=== PATIENT | female | born 1945 | race Caucasian/White ===

== ENCOUNTER 2018-05-27 08:12 | Inpatient (IN) | payer OTHER ==
[2018-05-12 10:33] VITALS: BMI 30.2
--- NOTE | 2018-05-27 07:38 | HP ---
Satellite [facility] - Chief Complaint Chief Complaint: right hip pain - Past Medical History Allergies/Adverse Reactions: Allergies Allergy/AdvReac Type Severity Reaction Status Date / Time clams Allergy Verified 01/20/15 13:33 Penicillins Allergy Verified 02/01/14 15:05 seasonal Allergy Uncoded 05/12/18 10:16 Cardiovascular: Yes: CAD (s/p CABG in 1999), HTN, Hyperlipdemia Pulmonary: Yes: Bronchitis Rheumatology: Yes: Rheumatoid Arthritis Endocrine: Yes: Diabetes Mellitus - Current Medications Current Medications: Home Medications Medication Instructions Recorded Metoprolol Succinate [Toprol XL -] 25 mg PO DAILY 02/01/14 Amlodipine Besylate [Norvasc -] 5 mg PO DAILY 05/12/18 Biotin 10,000 mcg PO DAILY 05/12/18 Flaxseed Oil [Flaxseed] 1,000 mg PO DAILY 05/12/18 Latanoprost/Pf [Latanoprost 0.005% 7.5 ml OP HS 05/12/18 Eye Drop] Multivitamin [One-Daily 1 each PO DAILY 05/12/18 Multi-Vitamin] Naproxen Sodium [Naproxen Sodium 500 mg PO BID 05/12/18 ER] Red Yeast Rice 1,200 mg PO DAILY 05/12/18 Vitamin E 400 unit PO DAILY 05/12/18 metFORMIN HCL [Glucophage -] 250 mg PO BID 05/12/18 Satellite Physical Exam - Physical Examination General Appearance: Well Nourished, Well Developed, Alert & Oriented x3 ENT: Clear Lung: Normal air movement Heart: Regular rate & rhythm Extremities: Other (right hip- + ttp, decr rom, nvi xrays show grade 4 hip djd) Neurological: Intact, Alert, Oriented Satellite Impression/Plan - Impression/Plan Impression: right hip djd Operative Procedure: right williams thr Date to be Performed: 05/27/18
[2018-05-27] MEDS ORDERED: CELECOXIB 200 MG CAPSULE PO ONE (08:31)
[2018-05-27] MEDS ORDERED: oxyCODONE HCL 10 MG SUSTAINED ACTING TABLET PO ONE (08:31)
[2018-05-27] MEDS ORDERED: GABAPENTIN 300 MG CAPSULE (FP) PO ONE (08:31)
[2018-05-27] MEDS ORDERED: CEFAZOLIN 1 GM/D5W 1 GRAM/50 ML BAG IVPB ONE (08:31)
[2018-05-27] MEDS ORDERED: TRANEXAMIC ACID 1000 MG/10 ML VIAL IVPUSH ONE (08:31)
[2018-05-27] MEDS ORDERED: DEXAMETHASONE SOD PHOSPHATE/PF 10 MG/ML SDV ONE (09:48)
[2018-05-27] MEDS ORDERED: MIDAZOLAM HCL 2 MG/2 ML SINGLE DOSE VIAL ONE (09:49)
[2018-05-27] MEDS ORDERED: BUPIVACAINE HCL/PF (5 MG/ML) 30 ML VIAL IJ ONE (09:49)
[2018-05-27] MEDS ORDERED: DEXMEDETOMIDINE HCL 200 MCG/2 ML IVPB ONE (10:11)
[2018-05-27] MEDS ORDERED: VANCOMYCIN 1,000 MG VIAL (RESTRICTED TO ID ONLY) ONE (10:23)
[2018-05-27] MEDS ORDERED: ceFAZolin SODIUM 1 GM VIAL ONE ×2 (10:32→10:33)
[2018-05-27] MEDS ORDERED: ONDANSETRON 4 MG/2 ML VIAL ONE (10:32)
[2018-05-27] MEDS ORDERED: TRANEXAMIC ACID 1000 MG/10 ML VIAL ONE (10:32)
[2018-05-27] MEDS ORDERED: SODIUM CHLORIDE 0.9% P/F 10 ML VIAL IJ ONE (10:32)
[2018-05-27] MEDS ORDERED: LACTATED RINGERS SOLUTION 1,000 ML IV SCH ×2 (10:45→11:00)
[2018-05-27] MEDS ORDERED: ONDANSETRON 4 MG/2 ML VIAL IVPUSH PRN (10:45)
[2018-05-27] MEDS ORDERED: oxyCODONE HCL 5 MG TABLET PO PRN (10:47)
[2018-05-27] MEDS ORDERED: MAGNESIUM HYDROX 2400MG/30ML ORAL SUSPENSION 30 ML CUP PO PRN (10:57)
[2018-05-27] MEDS ORDERED: MAG HYDROX/AL HYDROX/SIMETH 30 ML UNIT-DOSE CUP PO PRN (10:57)
[2018-05-27] MEDS ORDERED: ACETAMINOPHEN 325 MG TABLET (FP) PO SCH (11:00)
[2018-05-27] MEDS ORDERED: LIDOCAINE HCL/PF 2% SDV 5ML VIAL ONE (11:19)
[2018-05-27] MEDS ORDERED: ePHEDrine SULFATE 50 MG/1 ML AMPULE ONE ×2 (11:27→11:30)
[2018-05-27] MEDS ORDERED: VANCOMYCIN 1,000 MG VIAL (RESTRICTED TO ID ONLY) IVPB ONE (12:25)
--- NOTE | 2018-05-27 12:52 | OP ---
Operative Note - Note: Operative Date: 05/27/18 (kelly) Pre-Operative Diagnosis: right hip djd Operation: right williams thr Post-Operative Diagnosis: Same as Pre-op Surgeon: Nehemias Coelho Package Delivery Room Service Runner: Matthew Everett Anesthesiologist/SUPERVISING ARCHITECT: Angelito Foreman Anesthesia: Spinal, Local Specimens Removed: femoral head Estimated Blood Loss (mls): 100 Operative Report Dictated: Yes
[2018-05-27] MEDS: metFORMIN HCL 500 MG TABLET (FP) PO SCH (14:00)
[2018-05-27] MEDS: INSULIN SLIDING SCALE (NOVOLOG) 1 VIAL SQ SCH ×3 (14:59→22:29)
[2018-05-27] MEDS: oxyCODONE HCL 5 MG TABLET PO PRN (17:45)
[2018-05-27] MEDS: CEFAZOLIN 1 GM/D5W 1 GRAM/50 ML BAG IVPB SCH (18:35)
--- NOTE | 2018-05-27 19:21 | SPEC ---
DATE OF OPERATION: 05/27/2018 PREOPERATIVE DIAGNOSIS: Degenerative joint disease right hip. POSTOPERATIVE DIAGNOSIS: Degenerative joint disease right hip. PROCEDURE PERFORMED: Right total hip replacement with robotic-assisted navigation (MAKOplasty). SURGICAL ATTENDING: Nehemias Coelho MD ORTHOPAEDIC NURSE: HALEIGH Barrios ANESTHESIA: Regional and spinal. CLOSURE: A number 3 Accolade II press-fit stem, a 48 Trident II press-fit acetabulum, and a +3 MDM femoral head. Number 1 Vicryl for fascia, 0 and 2-0 subcutaneous, 3-0 V-Loc for skin, 4-0 undyed Vicryl for pin sites. ESTIMATED BLOOD LOSS: Less than 100 mL. COMPLICATIONS: None. CONDITION: To the recovery room in stable condition. DESCRIPTION OF PROCEDURE: The patient was taken to the operating room on May 27, 2018. General and regional anesthesia was administered by the anesthesiologist. IV Kefzol and TXA were administered prophylactically prior to the case. The patient was placed in the lateral decubitus position will all prominences well-padded. The right hip area was prepped and draped in the usual sterile fashion. Using 3 small stab incisions over the iliac crest, 3 threaded pins were drilled in power fashion through the 2 tables of the crest. These pins were fastened and the navigation array for the Buck navigation system. Next, a 12 to 15-cm curved longitudinal incision over the posterolateral aspect of the greater trochanter was incised. Hemostasis was achieved with Bovie cautery. Sharp dissection was carried down to level of the fascia. The fascia was opened the entire length of the incision, spreading the fibers of the gluteus nikki in the direction of origin. A Charnley retractor was placed in this layer. Care was taken not to impale the sciatic nerve. The short external rotators were detached off the insertion of the greater trochanter and peeled off the capsule. A posterior capsulotomy was then performed. A check point was malleted into the greater trochanter and a point on the inferior pole of the patella was obtained as well. These 2 points were used to assess the preoperative offset and limb lengths of the hip. The hip was then dislocated. The femoral neck was then osteotomized down to the appropriate level as directed by the navigation device. Anterior and posterior retractors were placed, exposing the acetabulum. A circumferential labral excision was performed. A check point was malleted into the acetabulum as well. Multiple sites inside the acetabulum and around the rim were utilized to register the acetabulum with the navigation device. An excellent registration of less than 0.5 mm was obtained. The hip was then reamed with the appropriate reamer down to the appropriate depth, with the appropriate orientation and version as assessed on our preoperative plan for this patient. The reamer was removed and the acetabulum was inspected to have good bleeding surfaces throughout. The real acetabular cup was then malleted down into place, with the holes in the appropriate position, until an excellent fixation was obtained. No screws were necessary. The navigation device ensured appropriate orientation and version, with the depth as predetermined. The appropriate liner was then clipped into place. Attention was directed to the femur. The proximal femur was prepared by use a box chisel, a canal finder and serial broaches until the broach achieved excellent rigidity in the proximal femur with the appropriate version being applied. A calcar planer was used to smooth off the calcar flush with the trial components. A trial reduction with the appropriate head was done, and the hip was reduced. The hip was taken through a range of motion from full extension with external rotation to marked flexion, and was stable at 90 degrees of flexion. It was stable to marked abduction and internal rotation, with a positive hang test and negative telescoping. Limb lengths were ascertained visually as well as with the navigation device to be within the targeted range for this patient. The trial component was removed. The real component was then malleted into place. The head was cold welded to the trunnion, and the hip was reduced. Range of motion, stability and limb lengths were as described in the trial component. Then the hip was pulse antibiotic irrigated. Vancomycin powder was placed in the hip joint. The capsule was closed. The fascia was then closed as well using number 1 Vicryl interrupted suture, 0 and 2-0 subcutaneous, and 3-0 V-Loc for the skin. 4-0 undyed Vicryl was used to close the pin sites after the pins were removed. All check points were also removed. Sterile Aquacel dressing was applied. The patient was awakened from anesthesia and transferred into the supine position. Bilateral SCDs and an abduction pillow were placed. X-rays revealed excellent position of the components. The patient was transferred to the recovery room in stable condition, with no complications. Estimated blood loss was less than 100 mL. Helen BORJAS/[id number]
[2018-05-27] MEDS: ACETAMINOPHEN 325 MG TABLET (FP) PO SCH (21:32)
[2018-05-27] MEDS: oxyCODONE HCL 10 MG SUSTAINED ACTING TABLET PO SCH (21:33)
[2018-05-27] MEDS: SENNOSIDES/DOCUSATE COMBO (SENNA PLUS) TABLET (UD) PO SCH (21:35)
[2018-05-27] MEDS: LATANOPROST 0.005% OPHTH SOLN 2.5ML BOTTLE OU SCH (21:35)
[2018-05-27] MEDS ORDERED: INSULIN (NOVOLOG) ASPART 100 UNITS/ML 10ML VIAL ONE (22:25)
[2018-05-28] MEDS: CEFAZOLIN 1 GM/D5W 1 GRAM/50 ML BAG IVPB SCH (03:15)
[2018-05-28] MEDS: ACETAMINOPHEN 325 MG TABLET (FP) PO SCH ×4 (03:15→21:55)
[2018-05-28] MEDS: metFORMIN HCL 500 MG TABLET (FP) PO SCH ×2 (06:45→17:36)
[2018-05-28] MEDS: INSULIN SLIDING SCALE (NOVOLOG) 1 VIAL SQ SCH ×4 (06:45→22:51)
[2018-05-28] MEDS: oxyCODONE HCL 5 MG TABLET PO PRN ×2 (06:46→21:56)
--- NOTE | 2018-05-28 08:57 | PN ---
Progress Note (short form) - Note Progress Note: Ortho Pt seen and examined s/p right williams thr pod #1 Selected Entries 05/28/18 06:00 Temperature 98.6 F Pulse Rate 75 Respiratory 18 Rate Blood Pressure 122/62 Laboratory Tests 05/28/18 07:01 WBC Pending Hgb Pending Hct Pending Plt Count Pending dressing c/d/i, calf soft, nt nvi a/p PT hip precautions dvt ppx pain control d/c home tomorrow if stable
[2018-05-28] MEDS: metoPROLOL SUCCINATE 25 MG TAB.SR.24H (FP) PO SCH (09:49)
[2018-05-28] MEDS: ASPIRIN 325 MG TABLET PO SCH (09:49)
[2018-05-28] MEDS: oxyCODONE HCL 10 MG SUSTAINED ACTING TABLET PO SCH ×2 (09:49→21:55)
[2018-05-28] MEDS: MULTIVITAMINS (DAILY MVI) TABLET (FP) PO SCH (09:49)
[2018-05-28] MEDS: PANTOPRAZOLE 40 MG TABLET (FP) PO SCH (09:50)
[2018-05-28] MEDS: amLODIPine BESYLATE 5 MG TABLET (FP) PO SCH (09:54)
[2018-05-28] MEDS: SENNOSIDES/DOCUSATE COMBO (SENNA PLUS) TABLET (UD) PO SCH ×2 (10:00→21:56)
[2018-05-28] MEDS ORDERED: INSULIN (NOVOLOG) ASPART 100 UNITS/ML 10ML VIAL ONE (11:42)
--- NOTE | 2018-05-28 12:13 | PN ---
Progress Note, Physician Chief Complaint: s/p right total hip replacement under spinal anesthesia History of Present Illness: paravertebral block for post op pain control - Current Medication List Current Medications: Active Medications Acetaminophen (Tylenol -) 650 mg PO Q6H [facility] Stop: 05/30/18 20:59 Last Admin: 05/28/18 09:53 Dose: 650 mg Al Hydroxide/Mg Hydroxide (Mylanta Oral Suspension -) 30 ml PO Q4H PRN PRN Reason: DYSPEPSIA Amlodipine Besylate (Norvasc -) 5 mg PO DAILY [facility] Last Admin: 05/28/18 09:54 Dose: 5 mg Aspirin (Asa -) 325 mg PO DAILY@0800 [facility] Last Admin: 05/28/18 09:49 Dose: 325 mg Insulin Aspart (Novolog Vial Sliding Scale -) 1 vial SQ [facility]; Protocol Last Admin: 05/28/18 11:44 Dose: 2 units Latanoprost (Xalatan 0.005% Eye Drops -) 1 drop OU HS [facility] Last Admin: 05/27/18 21:35 Dose: 1 drop Magnesium Hydroxide (Milk Of Magnesia -) 30 ml PO PRN PRN PRN Reason: CONSTIPATION Metformin HCl (Glucophage -) 250 mg PO BIDI [facility] Last Admin: 05/28/18 06:45 Dose: 250 mg Metoprolol Succinate (Toprol Xl -) 25 mg PO DAILY [facility] Last Admin: 05/28/18 09:49 Dose: 25 mg Multivitamins/Minerals/Vitamin C (Tab-A-Vit -) 1 tab PO DAILY [facility] Last Admin: 05/28/18 09:49 Dose: 1 tab Ondansetron HCl (Zofran Injection) 4 mg IVPUSH Q6H PRN PRN Reason: NAUSEA AND/OR VOMITING Oxycodone HCl (Roxicodone -) 5 mg PO Q3H PRN PRN Reason: PAIN LEVEL 1-5 Last Admin: 05/28/18 06:46 Dose: 5 mg Oxycodone HCl (Roxicodone -) 10 mg PO Q3H PRN PRN Reason: PAIN LEVEL 6-10 Last Admin: 05/27/18 21:34 Dose: 10 mg Oxycodone HCl (Oxycontin -) 10 mg PO BID [facility] Stop: 05/30/18 10:48 Last Admin: 05/28/18 09:49 Dose: 10 mg Pantoprazole Sodium (Protonix -) 40 mg PO DAILY [facility] Last Admin: 05/28/18 09:50 Dose: 40 mg Senna/Docusate Sodium (Pericolace -) 2 tablet PO BID [facility] Last Admin: 05/27/18 21:35 Dose: 2 tablet - Objective Vital Signs: Vital Signs Temperature 98.6 F 05/28/18 06:00 Pulse Rate 75 05/28/18 06:00 Respiratory Rate 18 05/28/18 06:00 Blood Pressure 122/62 05/28/18 06:00 O2 Sat by Pulse Oximetry (%) 100 05/28/18 06:33 Constitutional: Yes: Well Nourished Cardiovascular: Yes: WNL Respiratory: Yes: WNL Gastrointestinal: Yes: WNL Assessment/Plan No anesthetic complications, pain controlled, dept of anesthesia will sign off care.
[2018-05-28 13:42] LABS: HEMOGLOBIN 9.2 GM/dl (10.7-15.3); WHITE BLOOD COUNT 12.9 K/mm3 (4.0-10.8)
[2018-05-28 13:43] LABS: MEAN PLT VOLUME 9.1 fl (7.5-11.1); PLATELET COUNT 321 K/MM3 (134-434)
[2018-05-28] MEDS: LATANOPROST 0.005% OPHTH SOLN 2.5ML BOTTLE OU SCH (21:57)
[2018-05-29] MEDS: ACETAMINOPHEN 325 MG TABLET (FP) PO SCH (03:37)
[2018-05-29] MEDS: metFORMIN HCL 500 MG TABLET (FP) PO SCH (06:48)
[2018-05-29] MEDS: oxyCODONE HCL 5 MG TABLET PO PRN ×2 (06:49→09:58)
[2018-05-29] MEDS: INSULIN SLIDING SCALE (NOVOLOG) 1 VIAL SQ SCH (06:50)
[2018-05-29] MEDS ORDERED: INSULIN (NOVOLOG) ASPART 100 UNITS/ML 10ML VIAL ONE (06:50)
[2018-05-29 07:00] VITALS: BP 146/54; PULSE 82; TEMP 99
[2018-05-29] MEDS: ASPIRIN 325 MG TABLET PO SCH (08:10)
--- NOTE | 2018-05-29 08:39 | PN ---
Progress Note (short form) - Note Progress Note: Ortho Pt seen and examined s/p right williams thr pod #2 Selected Entries 05/29/18 06:00 Temperature 99.0 F Pulse Rate 82 Respiratory 19 Rate Blood Pressure 146/54 L Laboratory Tests 05/28/18 07:01 WBC 12.9 H Hgb 9.2 L Hct TNP Plt Count 321 dressing c/d/i, calf soft, nt nvi a/p PT hip precautions dvt ppx pain control d/c home today f/u in 1 week
--- NOTE | 2018-05-29 08:40 | DS ---
Physical Examination Vital Signs: Vital Signs Temperature 99.0 F 05/29/18 06:00 Pulse Rate 82 05/29/18 06:00 Respiratory Rate 19 05/29/18 08:14 Blood Pressure 146/54 L 05/29/18 06:00 O2 Sat by Pulse Oximetry (%) 100 05/29/18 08:14 Discharge Summary Reason For Visit: OSTEOARTHRITIS Procedures: Principal: right thr Hospital Course: admitted for elective right williams thr, uneventful post-op, stable for d/c Condition: Good - Instructions Diet, Activity, Other Instructions: Post-op Instructions-Total Hip Replacement Call the office for a follow-up appointment in 1 week - [phone] Aspirin 325mg daily for 6 weeks. Pain medication was sent into your pharmacy. Apply Graduated Compression Stockings (TEDs) to both lower extremities- remove daily for hygiene ONLY Apply Sequential Compression Device (SCDs) to both Lower extremities remove for PT and hygiene ONLY Apply cold packs to affected area for 15 minutes every 2 hours. Physical Therapist will come to your home for the first 5 days. You will be set up with outpatient PT at your first post-operative visit. Patient may ambulate as tolerated-encourage self care (at least every 2-3 hours while awake) with walker or cane Maintain Aquacel (waterproof) dressing to operative wound (will be removed by surgeon at first office visit) Shower with Aquacel dressing in place-if Aquacel integrity compromised, remove and apply dry sterile dressing and notify Orthopedist. DO NOT SHOWER unless Orthopedists approves without Aquacel dressing CONTACT THE OFFICE FOR ANY CHANGE IN YOUR CONDITION (for example-fever greater than 102 degrees, excessive bleeding from operative site, purulent drainage, severe swelling or pain) GO TO THE EMERGENCY ROOM IF THERE IS A MEDICAL EMERGENCY Hip Precautions: * Keep a rolled towel under affected heel while in bed or chair (to keep knee in extension) * Dependent upon approach: * Posterior - do not cross legs; do not sit on low chairs or toilets. * If you have any questions, please do not hesitate to call the office - . Referrals: Nehemias Coelho MD [Staff Physician] - Disposition: VNS/HOME HEALTH CARE - Home Medications Comprehensive Discharge Medication List: Ambulatory Orders Metoprolol Succinate [Toprol XL -] 25 mg PO DAILY 02/01/14 Amlodipine Besylate [Norvasc -] 5 mg PO DAILY 05/12/18 Biotin 10,000 mcg PO DAILY 05/12/18 Flaxseed Oil [Flaxseed] 1,000 mg PO DAILY 05/12/18 Latanoprost/Pf [Latanoprost 0.005% Eye Drop] 7.5 ml OP HS 05/12/18 Multivitamin [One-Daily Multi-Vitamin] 1 each PO DAILY 05/12/18 Naproxen Sodium [Naproxen Sodium ER] 500 mg PO BID 05/12/18 Red Yeast Rice 1,200 mg PO DAILY 05/12/18 Vitamin E 400 unit PO DAILY 05/12/18 metFORMIN HCL [Glucophage -] 250 mg PO BID 05/12/18 Aspirin [ASA -] 325 mg PO DAILY@0800 tablet 05/28/18 Oxycodone HCl/Acetaminophen [Percocet 5-325 mg Tablet -] 1 - 2 tab PO Q6H #50 tab MDD 8 05/28/18
[2018-05-29 09:42] LABS: HEMOGLOBIN 9.3 GM/dl (10.7-15.3); MEAN PLT VOLUME 8.7 fl (7.5-11.1); PLATELET COUNT 232 K/MM3 (134-434)
[2018-05-29 09:54] LABS: WHITE BLOOD COUNT 13.9 K/mm3 (4.0-10.8)
[2018-05-29] MEDS: MULTIVITAMINS (DAILY MVI) TABLET (FP) PO SCH (09:58)
[2018-05-29] MEDS: metoPROLOL SUCCINATE 25 MG TAB.SR.24H (FP) PO SCH (09:58)
[2018-05-29] MEDS: PANTOPRAZOLE 40 MG TABLET (FP) PO SCH (09:58)
[2018-05-29] MEDS: amLODIPine BESYLATE 5 MG TABLET (FP) PO SCH (09:58)
[2018-05-29] MEDS: SENNOSIDES/DOCUSATE COMBO (SENNA PLUS) TABLET (UD) PO SCH (09:58)
[2018-05-29] MEDS: oxyCODONE HCL 10 MG SUSTAINED ACTING TABLET PO SCH (09:59)
--- NOTE | 2018-05-29 14:05 | PATH ---
Surgical Pathology Report Patient Name: GINNA NATHAN Med. Rec. #: [id number] /Age/Gender: 1945 (Age: 72) / F Account: [id number] Location: [facility] Taken: 05/27/2018 Received: 05/27/2018 Reported: 05/29/2018 Physicians: Nehemias Coelho M.D. Specimen(s) Received RIGHT FEMORAL HEAD Clinical History Osteoarthritis right hip Final Diagnosis BONE, FEMORAL HEAD, RIGHT, TOTAL HIP REPLACEMENT MAKOPASTY: BONE WITH DEGENERATIVE JOINT DISEASE. Electronically Signed Lulu Peña M.D. Gross Description Received in formalin, labeled "right femoral head," is a 4.4 x 4.4 x 3.6 cm. femoral head with a 0.6 cm in length portion of femoral neck attached. The margin of resection is smooth. There is a 2.4 cm in greatest dimension area of eburnation present. The remaining articular surface is hardy-yellow and diffusely granular and nodular. The underlying trabecular bone is yellow and hard. A insurance verification representative section is submitted in one cassette, following decalcification. /05/28/201805/28/2018
== END 2018-05-29 11:25 | disposition home health service (06) | DRG 470 ==
LOC: FM/S 08:12
PROVIDERS: ADMIT Orthopaedic Surgery; ATTEND Orthopaedic Surgery
PROC: 0SR90JA Replacement of Right Hip Joint with Synthetic Substitute, Uncemented, Open Approach (ICD-10-PCS; principal; 2018-05-27 11:35)
DX: M16.11 Unilateral primary osteoarthritis, right hip (principal); I10 Essential (primary) hypertension; I25.10 Atherosclerotic heart disease of native coronary artery without angina pectoris; E78.5 Hyperlipidemia, unspecified; M06.9 Rheumatoid arthritis, unspecified; E11.9 Type 2 diabetes mellitus without complications; Z88.0 Allergy status to penicillin
CPT/HCPCS: 36415; 73502-TC-RT-FY; 82962; 85027; 88305-TC; 88311-TC; 94660; 94760; 97116-GP

== ENCOUNTER 2020-01-25 21:48 | Inpatient (IN) | payer OTHER ==
[2020-01-25] MEDS ORDERED: ASPIRIN 81 MG CHEWABLE TABLETS PO ONE (22:21)
[2020-01-25] MEDS ORDERED: ASPIRIN 81 MG CHEWABLE TABLETS ONE (22:25)
[2020-01-25 22:54] LABS: HEMATOCRIT 12.6 % (32.4-45.2); HEMOGLOBIN 7.9 GM/dL (10.7-15.3); MEAN CELL VOLUME 131.5 fl (80-96); RBC 0.96 M/mm3 (3.60-5.2); RDW 31.8 % (11.6-15.6)
[2020-01-25 23:00] LABS: INR 1.04 (0.83-1.09); PROTHROMBIN TIME (PATIENT) 12.8 SEC (9.7-13.0)
[2020-01-25 23:03] LABS: ACTIVATED PTT 24.3 SECONDS (25.2-36.5)
[2020-01-25 23:12] LABS: CHLORIDE 100 mmol/L (98-107); POTASSIUM 4.6 mmol/L (3.5-5.1); SODIUM 133 mmol/L (136-145)
[2020-01-25 23:15] LABS: MCH 82.8 pg (25.7-33.7); MCHC 62.9 g/dl (32.0-36.0)
[2020-01-25 23:17] LABS: CALCIUM 8.7 mg/dL (8.5-10.1)
[2020-01-25 23:18] LABS: ALBUMIN 4.2 g/dl (3.4-5.0); ANION GAP 10 MMOL/L (8-16); BLOOD UREA NITROGEN 19.2 mg/dL (7-18); CO2 23 mmol/L (21-32); GLUCOSE,RANDOM 360 mg/dL (74-106)
[2020-01-25 23:21] LABS: CREATININE 1.1 mg/dL (0.55-1.3); SGOT/AST 63 U/L (15-37); SGPT/ALT 40 U/L (13-61)
[2020-01-25 23:23] LABS: BILIRUBIN,TOTAL 5.8 mg/dL (0.2-1); TOT PROT 7.4 g/dl (6.4-8.2)
[2020-01-25 23:24] LABS: ALK PHOS 237 U/L (45-117)
[2020-01-26 02:59] LABS: ANISOCYTOSIS 3+; MACROCYTOSIS 1+; PLATELET ESTIMATE NORMAL
[2020-01-26 03:27] LABS: MEAN PLT VOLUME 9.1 fl (7.5-11.1); PLATELET COUNT 409 K/MM3 (134-434); WHITE BLOOD COUNT 15.8 K/mm3 (4.0-10.0)
[2020-01-26 08:34] LABS: POTASSIUM 5.7 mmol/L (3.5-5.1)
[2020-01-26 08:44] LABS: CALCIUM 8.3 mg/dL (8.5-10.1)
[2020-01-26 08:46] LABS: ALBUMIN 3.6 g/dl (3.4-5.0); BLOOD UREA NITROGEN 14.4 mg/dL (7-18)
[2020-01-26 08:48] LABS: CREATININE 0.8 mg/dL (0.55-1.3)
[2020-01-26 08:49] LABS: MAGNESIUM 2.3 mg/dL (1.8-2.4); PHOSPHOROUS 3.7 mg/dL (2.5-4.9)
[2020-01-26 08:50] LABS: TOT PROT 6.6 g/dl (6.4-8.2)
[2020-01-26 08:57] LABS: BILIRUBIN,TOTAL 3.2 mg/dL (0.2-1)
[2020-01-26 09:04] LABS: BASO % 2.9 % (0-2.0); EOS % 0.7 % (0-4.5); HEMATOCRIT 17.7 % (32.4-45.2); LYMPH % 38.3 % (8-40); MEAN CELL VOLUME 126.2 fl (80-96); MONO % 4.9 % (3.8-10.2); NEUT % 53.2 % (42.8-82.8); RDW 20.4 % (11.6-15.6)
[2020-01-26 09:30] LABS: MCH 71.7 pg (25.7-33.7)
[2020-01-26 09:32] LABS: MCHC 56.8 g/dl (32.0-36.0)
[2020-01-26 11:19] LABS: ANISOCYTOSIS 2+; MACROCYTOSIS 1+; PLATELET ESTIMATE NORMAL
[2020-01-26] MEDS ORDERED: NITROGLYCERIN SUBLINGUAL 1/150 0.4 MG TAB SL PRN (13:53)
[2020-01-26] MEDS: amLODIPine BESYLATE 5 MG TABLET (FP) PO SCH (14:08)
[2020-01-26] MEDS: metoPROLOL SUCCINATE 25 MG TAB.SR.24H (FP) PO SCH (14:08)
[2020-01-26] MEDS: EZETIMIBE 10 MG TABLET (FP) PO SCH (14:10)
[2020-01-26 15:40] VITALS: BMI 29.0
[2020-01-26] MEDS ORDERED: ATORVASTATIN CA 10 MG TABLET (FP) PO SCH (22:00)
[2020-01-26] MEDS ORDERED: LATANOPROST 0.005% OPHTH SOLN 2.5ML BOTTLE OU SCH (22:00)
[2020-01-27 07:41] LABS: POTASSIUM 5.4 mmol/L (3.5-5.1)
[2020-01-27 07:44] LABS: CALCIUM 8.6 mg/dL (8.5-10.1)
[2020-01-27 07:46] LABS: ALBUMIN 3.5 g/dl (3.4-5.0); BLOOD UREA NITROGEN 13.2 mg/dL (7-18)
[2020-01-27 07:49] LABS: BILIRUBIN,TOTAL 2.7 mg/dL (0.2-1); CREATININE 0.8 mg/dL (0.55-1.3)
[2020-01-27 07:50] LABS: TOT PROT 6.2 g/dl (6.4-8.2)
[2020-01-27] MEDS ORDERED: PNEUMOC 13-VAL CONJ-DIP CRM/PF 0.5 ML DISP.SYRIN IM ONE (08:00)
[2020-01-27 09:16] LABS: BASO % 0.5 % (0-2.0); EOS % 1.6 % (0-4.5); HEMATOCRIT 24.5 % (32.4-45.2); HEMOGLOBIN 11.7 GM/dL (10.7-15.3); LYMPH % 36.4 % (8-40); MEAN CELL VOLUME 112.9 fl (80-96); MEAN PLT VOLUME 9.4 fl (7.5-11.1); NEUT % 55.5 % (42.8-82.8); RBC 2.17 M/mm3 (3.60-5.2); RDW 19.9 % (11.6-15.6); WHITE BLOOD COUNT 9.6 K/mm3 (4.0-10.0)
[2020-01-27 09:28] LABS: MCHC 47.8 g/dl (32.0-36.0)
[2020-01-27] MEDS: amLODIPine BESYLATE 5 MG TABLET (FP) PO SCH (10:08)
[2020-01-27] MEDS: EZETIMIBE 10 MG TABLET (FP) PO SCH (10:09)
[2020-01-27] MEDS: metoPROLOL SUCCINATE 25 MG TAB.SR.24H (FP) PO SCH (10:09)
[2020-01-27 10:35] LABS: PLATELET COUNT 309 K/MM3 (134-434)
[2020-01-27] MEDS ORDERED: SODIUM POLYSTYRENE SULFONATE 15 GM/60 ML BOTTLE PO ONE (12:46)
[2020-01-27 14:22] VITALS: BP 139/71; PULSE 70; TEMP 98.2
[2020-01-27] MEDS ORDERED: INSULIN SLIDING SCALE (NOVOLOG) 1 VIAL SQ SCH (16:30)
[2020-01-27] MEDS ORDERED: INSULIN (LEVEMIR) 100 UNITS/ML UNITS SQ SCH (22:00)
== END 2020-01-27 15:00 | disposition short-term general hospital (02) | DRG 811 ==
LOC: JER 21:48 → JERBED 22:30 → J4W 01-26 15:22
PROVIDERS: ADMIT Internal Medicine; ATTEND Internal Medicine
PROC: 30233N1 Transfusion of Nonautologous Red Blood Cells into Peripheral Vein, Percutaneous Approach (ICD-10-PCS; principal; 2020-01-26)
DX: D64.9 Anemia, unspecified (principal); I21.A1 Myocardial infarction type 2; I10 Essential (primary) hypertension; E78.5 Hyperlipidemia, unspecified; E11.9 Type 2 diabetes mellitus without complications; E66.9 Obesity, unspecified; Z68.29 Body mass index [BMI] 29.0-29.9, adult; K21.9 Gastro-esophageal reflux disease without esophagitis; I25.10 Atherosclerotic heart disease of native coronary artery without angina pectoris; M06.9 Rheumatoid arthritis, unspecified; R94.31 Abnormal electrocardiogram [ECG] [EKG]; R07.89 Other chest pain; Z95.1 Presence of aortocoronary bypass graft
CPT/HCPCS: 36415; 36430; 71045-TC-FY; 80053; 80061; 82272; 82550; 82728; 83036; 83540; 83550; 83721; 83735; 83880; 84100; 84443; 84484; 85025; 85027; 85610; 85730; 86850; 86900; 86901; 86922; 90670; 93005; 93010; 93306-TC; 99285-25; C9803; P9058; U0003

== ENCOUNTER 2020-02-24 21:25 | Observation (INO) | payer OTHER ==
[2020-02-24 21:33] VITALS: BMI 27.3
[2020-02-25 00:07] LABS: ARTERIAL BLD GAS O2 SATURATION 98.6 mmHg (95-98); ARTERIAL BLOOD GAS BASE EXCESS 0.3 mmol/L (-2-2); ARTERIAL BLOOD GAS PO2 116.3 mmHg (80-100); ARTERIAL BLOOD GAS pH 7.516 (7.350-7.450)
[2020-02-25 00:09] LABS: INR 0.97 (0.83-1.09)
[2020-02-25 00:11] LABS: ACTIVATED PTT 23.1 SECONDS (25.2-36.5)
[2020-02-25 00:23] LABS: CHLORIDE 102 mmol/L (98-107); SODIUM 136 mmol/L (136-145)
[2020-02-25 00:27] LABS: ALBUMIN 4.2 g/dl (3.4-5.0); ANION GAP 11 MMOL/L (8-16); BLOOD UREA NITROGEN 23.5 mg/dL (7-18); CALCIUM 9.1 mg/dL (8.5-10.1); CO2 24 mmol/L (21-32); GLUCOSE,RANDOM 327 mg/dL (74-106); MAGNESIUM 1.9 mg/dL (1.8-2.4)
[2020-02-25 00:30] LABS: CREATININE 1.1 mg/dL (0.55-1.3); SGOT/AST 79 U/L (15-37); SGPT/ALT 38 U/L (13-61)
[2020-02-25 00:32] LABS: BILIRUBIN,TOTAL 5.6 mg/dL (0.2-1); TOT PROT 7.1 g/dl (6.4-8.2)
[2020-02-25 00:33] LABS: ALK PHOS 172 U/L (45-117)
[2020-02-25 00:35] LABS: N-TERMINAL BNP 285.9 pg/ml (5-125)
[2020-02-25 07:45] LABS: BASO % 3.6 % (0-2.0); EOS % 0.5 % (0-4.5); HEMOGLOBIN 9.5 GM/dL (10.7-15.3); LYMPH % 32.8 % (8-40); MEAN PLT VOLUME 9.9 fl (7.5-11.1); MONO % 5.6 % (3.8-10.2); NEUT % 57.5 % (42.8-82.8); PLATELET COUNT 321 K/MM3 (134-434); RBC 1.41 M/mm3 (3.60-5.2)
[2020-02-25 07:47] LABS: WHITE BLOOD COUNT 9.4 K/mm3 (4.0-10.0)
[2020-02-25 07:50] LABS: CHOLESTEROL 120 mg/dL (50-200)
[2020-02-25 07:51] LABS: HDL CHOLESTEROL 40 mg/dL (40-60); LDL CHOLESTEROL (ONLY SJRH) 58 mg/dL (5-100)
[2020-02-25 07:52] LABS: TRIGLYCERIDES 211 mg/dL (0-150)
[2020-02-25] MEDS ORDERED: INSULIN SLIDING SCALE (NOVOLOG) 1 VIAL SQ ONE ×2 (08:10→12:22)
[2020-02-25] MEDS: INSULIN SLIDING SCALE (NOVOLOG) 1 VIAL SQ SCH ×3 (08:13→17:52)
[2020-02-25 16:21] VITALS: BP 135/72; PULSE 80; TEMP 98.4
== END 2020-02-25 17:40 | disposition home or self-care (01) ==
LOC: JER 21:25 → JERBED 02-25 03:49
PROVIDERS: ADMIT Internal Medicine; ATTEND Internal Medicine
DX: T59.811A Toxic effect of smoke, accidental (unintentional), initial encounter (principal); I25.10 Atherosclerotic heart disease of native coronary artery without angina pectoris; R07.9 Chest pain, unspecified; J70.5 Respiratory conditions due to smoke inhalation; Z95.1 Presence of aortocoronary bypass graft; E11.9 Type 2 diabetes mellitus without complications; M06.9 Rheumatoid arthritis, unspecified; J40 Bronchitis, not specified as acute or chronic; E78.5 Hyperlipidemia, unspecified; I50.9 Heart failure, unspecified; I11.0 Hypertensive heart disease with heart failure; Z20.828 Contact with and (suspected) exposure to other viral communicable diseases; D64.9 Anemia, unspecified; Z91.013 Allergy to seafood; Z88.0 Allergy status to penicillin
CPT/HCPCS: 36415; 36600; 71045-TC-FY; 80053; 80061; 82550; 82803; 82962; 83036; 83721; 83735; 83880; 84484; 85025; 85610; 85730; 93005; 93010; 99285-25; C9803; G0378; U0003

== ENCOUNTER 2020-03-09 10:29 | Inpatient (IN) | payer OTHER ==
[2020-03-09] MEDS ORDERED: SODIUM CHLORIDE 2,041 ML IV ONE (11:17)
[2020-03-09 11:59] LABS: INR 1.07 (0.83-1.09); PROTHROMBIN TIME (PATIENT) 13.1 SEC (9.7-13.0)
[2020-03-09 12:10] LABS: CHLORIDE 97 mmol/L (98-107); POTASSIUM 5.1 mmol/L (3.5-5.1); SODIUM 130 mmol/L (136-145)
[2020-03-09 12:13] LABS: CALCIUM 8.4 mg/dL (8.5-10.1); GLUCOSE,RANDOM 281 mg/dL (74-106)
[2020-03-09 12:14] LABS: ALBUMIN 3.3 g/dl (3.4-5.0); ANION GAP 10 MMOL/L (8-16); BLOOD UREA NITROGEN 13.3 mg/dL (7-18); CO2 24 mmol/L (21-32); LIPASE 318 U/L (73-393); MAGNESIUM 2.1 mg/dL (1.8-2.4)
[2020-03-09 12:16] LABS: CREATININE 1.1 mg/dL (0.55-1.3); SGPT/ALT 39 U/L (13-61)
[2020-03-09 12:17] LABS: SGOT/AST 146 U/L (15-37)
[2020-03-09 12:18] LABS: TOT PROT 6.3 g/dl (6.4-8.2)
[2020-03-09 12:19] LABS: ALK PHOS 192 U/L (45-117)
[2020-03-09 12:20] LABS: N-TERMINAL BNP 260.4 pg/ml (5-125)
[2020-03-09 12:22] LABS: BILIRUBIN,TOTAL 2.9 mg/dL (0.2-1)
[2020-03-09] MEDS ORDERED: DEXAMETHASONE SOD PHOSPHATE 4 MG/1 ML VIAL IVPUSH ONE (12:22)
[2020-03-09] MEDS ORDERED: VANCOMYCIN 1,000 MG in DEXTROSE 5%-WATER - 250 ML IVPB ONE (12:23)
[2020-03-09] MEDS ORDERED: CEFEPIME HCL/D5W 2 GM/50 ML BAG IVPB ONE (12:29)
[2020-03-09 12:31] LABS: LDH 1209 U/L (84-246)
[2020-03-09] MEDS ORDERED: ACETAMINOPHEN 1000 MG/100 ML VIAL (NON FORMULARY) IVPB ONE (12:49)
[2020-03-09 13:06] LABS: HEMOGLOBIN 8.1 GM/dL (10.7-15.3); MEAN PLT VOLUME 9.5 fl (7.5-11.1); PLATELET COUNT 291 K/MM3 (134-434); RBC 1.61 M/mm3 (3.60-5.2)
[2020-03-09 13:11] LABS: WHITE BLOOD COUNT 10.9 K/mm3 (4.0-10.0)
[2020-03-09] MEDS ORDERED: ACETAMINOPHEN INJECTION 100 ML IVPB ONE (13:27)
[2020-03-09] MEDS ORDERED: DEXAMETHASONE SOD PHOSPHATE 10 MG/1 ML VIAL ONE (13:27)
[2020-03-09] MEDS ORDERED: VANCOMYCIN 1 GRAM (PRE-DOCKED) 1,000 MG/250 ML BAG IVPB ONE (13:28)
[2020-03-09 13:46] LABS: ANISOCYTOSIS 1+; MACROCYTOSIS 1+; PLATELET ESTIMATE NORMAL
[2020-03-09] MEDS ORDERED: ACETAMINOPHEN 325 MG TABLET (FP) PO PRN (14:02)
[2020-03-09] MEDS ORDERED: ALBUTEROL SO4 HFA INHALER IH PRN (14:02)
[2020-03-09] MEDS ORDERED: FAMOTIDINE 10 MG TABLET PO SCH ×2 (14:15→22:00)
[2020-03-09] MEDS ORDERED: CEFEPIME 2 GM/100 ML BAG IVPB ONE (15:38)
[2020-03-09] MEDS ORDERED: FAMOTIDINE 20 MG TABLET ONE (15:38)
[2020-03-09] MEDS: INSULIN SLIDING SCALE (NOVOLOG) 1 VIAL SQ SCH (18:14)
[2020-03-09] MEDS: LATANOPROST 0.005% OPHTH SOLN 2.5ML BOTTLE OU SCH (22:00)
[2020-03-09] MEDS ORDERED: PT OWN MED DRAWER 7, Y5N ONE (22:13)
[2020-03-10 00:45] VITALS: BMI 27.5
[2020-03-10] MEDS: guaiFENesin/D-METHORPHAN HB 10 ML UNIT-DOSE CUPS PO PRN ×4 (01:38→23:47)
[2020-03-10 06:11] LABS: URINE APPEARANCE CLEAR; URINE COLOR YELLOW
[2020-03-10 06:12] LABS: PH,URINE 6.5 (5.0-8.0); URINE BILIRUBIN NEGATIVE (NEGATIVE); URINE GLUCOSE (UA) 250 (NEGATIVE); URINE KETONE NEGATIVE (NEGATIVE); URINE PROTEIN 30 (NEGATIVE)
[2020-03-10 06:13] LABS: EPI CELLS 8.8 /uL (0-25.1); HYALINE CASTS 1.79 /uL (0-3.1); URINE BACTERIA 482.7 /uL (0-1359); URINE LEUK ESTERASE NEGATIVE (NEGATIVE); URINE NITRITE NEGATIVE (NEGATIVE); URINE RBC 18.6 /uL (0-23.9); URINE WBC 11.4 /uL (0-25.8)
[2020-03-10] MEDS: INSULIN SLIDING SCALE (NOVOLOG) 1 VIAL SQ SCH ×3 (06:45→17:02)
[2020-03-10] MEDS: DEXAMETHASONE SOD PHOSPHATE 4 MG/1 ML VIAL IVPUSH SCH (09:26)
[2020-03-10] MEDS: amLODIPine BESYLATE 5 MG TABLET (FP) PO SCH (09:26)
[2020-03-10] MEDS: metoPROLOL SUCCINATE 25 MG TAB.SR.24H (FP) PO SCH (09:27)
[2020-03-10] MEDS ORDERED: REMDESIVIR 200 MG in SODIUM CHLORIDE 210 ML IVPB ONE (20:02)
[2020-03-10] MEDS: ASCORBIC ACID 500 MG TABLET (FP) PO SCH (21:48)
[2020-03-10] MEDS: LATANOPROST 0.005% OPHTH SOLN 2.5ML BOTTLE OU SCH (21:48)
[2020-03-10] MEDS ORDERED: FAMOTIDINE 20 MG/50 ML IVPB 20 MG/50 ML MG IVPB SCH (22:00)
[2020-03-11] MEDS: INSULIN SLIDING SCALE (NOVOLOG) 1 VIAL SQ SCH ×3 (06:50→16:46)
[2020-03-11 09:58] LABS: POTASSIUM 5.8 mmol/L (3.5-5.1)
[2020-03-11] MEDS: CHOLECALCIFEROL (VIT D3) 5000 UNITS (125 MCG) CAP PO SCH (10:00)
[2020-03-11] MEDS: metoPROLOL SUCCINATE 25 MG TAB.SR.24H (FP) PO SCH (10:01)
[2020-03-11] MEDS: amLODIPine BESYLATE 5 MG TABLET (FP) PO SCH (10:01)
[2020-03-11] MEDS: ASCORBIC ACID 500 MG TABLET (FP) PO SCH ×2 (10:01→21:56)
[2020-03-11] MEDS: DEXAMETHASONE SOD PHOSPHATE 4 MG/1 ML VIAL IVPUSH SCH (10:01)
[2020-03-11] MEDS: FAMOTIDINE 10 MG TABLET PO SCH (10:02)
[2020-03-11 10:10] LABS: ALBUMIN 3.3 g/dl (3.4-5.0); CALCIUM 8.9 mg/dL (8.5-10.1)
[2020-03-11 10:11] LABS: BLOOD UREA NITROGEN 17.3 mg/dL (7-18)
[2020-03-11 10:13] LABS: CREATININE 0.8 mg/dL (0.55-1.3)
[2020-03-11 10:15] LABS: BILIRUBIN,TOTAL 1.7 mg/dL (0.2-1); TOT PROT 6.5 g/dl (6.4-8.2)
[2020-03-11] MEDS: guaiFENesin/D-METHORPHAN HB 10 ML UNIT-DOSE CUPS PO PRN (10:35)
[2020-03-11 11:00] LABS: BASO % 1.3 % (0-2.0); HEMATOCRIT 22.8 % (32.4-45.2); HEMOGLOBIN 8.7 GM/dL (10.7-15.3); LYMPH % 14.3 % (8-40); MCH 45.7 pg (25.7-33.7); MCHC 38.1 g/dl (32.0-36.0); MEAN PLT VOLUME 9.7 fl (7.5-11.1); MONO % 2.5 % (3.8-10.2); NEUT % 81.9 % (42.8-82.8); PLATELET COUNT 399 K/MM3 (134-434); RDW 18.6 % (11.6-15.6); WHITE BLOOD COUNT 12.7 K/mm3 (4.0-10.0)
[2020-03-11] MEDS: SODIUM ZIRCONIUM CYCLOSILICATE (LOKELMA) 5 GM PACKET PO SCH (16:39)
[2020-03-11] MEDS: LATANOPROST 0.005% OPHTH SOLN 2.5ML BOTTLE OU SCH (21:56)
[2020-03-11] MEDS: REMDESIVIR 100 MG in SODIUM CHLORIDE 230 ML IVPB SCH (21:56)
[2020-03-12] MEDS: guaiFENesin/D-METHORPHAN HB 10 ML UNIT-DOSE CUPS PO PRN ×2 (06:33→21:42)
[2020-03-12] MEDS: INSULIN SLIDING SCALE (NOVOLOG) 1 VIAL SQ SCH ×3 (06:36→15:51)
[2020-03-12] MEDS: ENOXAPARIN NA (PORCINE) 40 MG/0.4 ML DISP.SYRIN SQ SCH (09:27)
[2020-03-12] MEDS: amLODIPine BESYLATE 5 MG TABLET (FP) PO SCH (09:28)
[2020-03-12] MEDS: DEXAMETHASONE SOD PHOSPHATE 4 MG/1 ML VIAL IVPUSH SCH (09:28)
[2020-03-12] MEDS: ASCORBIC ACID 500 MG TABLET (FP) PO SCH ×2 (09:28→21:42)
[2020-03-12] MEDS: metoPROLOL SUCCINATE 25 MG TAB.SR.24H (FP) PO SCH (09:29)
[2020-03-12] MEDS: CHOLECALCIFEROL (VIT D3) 5000 UNITS (125 MCG) CAP PO SCH (09:29)
[2020-03-12] MEDS: FAMOTIDINE 10 MG TABLET PO SCH (09:29)
[2020-03-12] MEDS: SODIUM ZIRCONIUM CYCLOSILICATE (LOKELMA) 5 GM PACKET PO SCH (09:29)
[2020-03-12 09:50] LABS: POTASSIUM 5.1 mmol/L (3.5-5.1)
[2020-03-12 10:41] LABS: CALCIUM 8.6 mg/dL (8.5-10.1)
[2020-03-12 10:43] LABS: CREATININE 0.7 mg/dL (0.55-1.3)
[2020-03-12 10:45] LABS: BILIRUBIN,TOTAL 1.9 mg/dL (0.2-1); BLOOD UREA NITROGEN 17.5 mg/dL (7-18)
[2020-03-12 10:48] LABS: TOT PROT 5.6 g/dl (6.4-8.2)
[2020-03-12 17:11] LABS: BASO % 0.2 % (0-2.0); EOS % 0.1 % (0-4.5); HEMATOCRIT 19.9 % (32.4-45.2); HEMOGLOBIN 7.9 GM/dL (10.7-15.3); MCHC 39.8 g/dl (32.0-36.0); MEAN CELL VOLUME 121.6 fl (80-96); MEAN PLT VOLUME 8.5 fl (7.5-11.1); MONO % 8.2 % (3.8-10.2); NEUT % 73.5 % (42.8-82.8); PLATELET COUNT 487 K/MM3 (134-434); RBC 1.63 M/mm3 (3.60-5.2); RDW 19.5 % (11.6-15.6); WHITE BLOOD COUNT 8.9 K/mm3 (4.0-10.0)
[2020-03-12 17:13] LABS: MCH 48.3 pg (25.7-33.7)
[2020-03-12 17:51] LABS: ANISOCYTOSIS 3+; MACROCYTOSIS 3+; PLATELET ESTIMATE INCREASED
[2020-03-12] MEDS: REMDESIVIR 100 MG in SODIUM CHLORIDE 230 ML IVPB SCH (21:42)
[2020-03-12] MEDS: LATANOPROST 0.005% OPHTH SOLN 2.5ML BOTTLE OU SCH (21:42)
[2020-03-13] MEDS: guaiFENesin/D-METHORPHAN HB 10 ML UNIT-DOSE CUPS PO PRN ×2 (05:55→21:51)
[2020-03-13] MEDS: INSULIN SLIDING SCALE (NOVOLOG) 1 VIAL SQ SCH ×3 (06:33→16:00)
[2020-03-13] MEDS: FAMOTIDINE 10 MG TABLET PO SCH (09:34)
[2020-03-13] MEDS: CHOLECALCIFEROL (VIT D3) 5000 UNITS (125 MCG) CAP PO SCH (09:35)
[2020-03-13] MEDS: ASCORBIC ACID 500 MG TABLET (FP) PO SCH ×2 (09:35→21:51)
[2020-03-13] MEDS: metoPROLOL SUCCINATE 25 MG TAB.SR.24H (FP) PO SCH (09:35)
[2020-03-13] MEDS: amLODIPine BESYLATE 5 MG TABLET (FP) PO SCH (09:35)
[2020-03-13] MEDS: SODIUM ZIRCONIUM CYCLOSILICATE (LOKELMA) 5 GM PACKET PO SCH (09:35)
[2020-03-13] MEDS: DEXAMETHASONE SOD PHOSPHATE 4 MG/1 ML VIAL IVPUSH SCH (09:35)
[2020-03-13] MEDS: ENOXAPARIN NA (PORCINE) 40 MG/0.4 ML DISP.SYRIN SQ SCH (09:35)
[2020-03-13] MEDS ORDERED: INSULIN (NOVOLOG) ASPART 100 UNITS/ML 10ML VIAL ONE (09:43)
[2020-03-13 16:15] LABS: HEMATOCRIT 25.3 % (32.4-45.2); HEMOGLOBIN 8.7 GM/dL (10.7-15.3); MCH 38.1 pg (25.7-33.7); MCHC 34.4 g/dl (32.0-36.0); MEAN CELL VOLUME 110.7 fl (80-96); MEAN PLT VOLUME 8.5 fl (7.5-11.1); PLATELET COUNT 596 K/MM3 (134-434); RBC 2.29 M/mm3 (3.60-5.2); RDW 17.8 % (11.6-15.6); WHITE BLOOD COUNT 13.2 K/mm3 (4.0-10.0)
[2020-03-13] MEDS: REMDESIVIR 100 MG in SODIUM CHLORIDE 230 ML IVPB SCH (21:51)
[2020-03-13] MEDS: LATANOPROST 0.005% OPHTH SOLN 2.5ML BOTTLE OU SCH (21:52)
[2020-03-14] MEDS: INSULIN SLIDING SCALE (NOVOLOG) 1 VIAL SQ SCH ×3 (06:51→17:46)
[2020-03-14] MEDS ORDERED: PT OWN MED DRAWER 7, Y5N ONE (11:28)
[2020-03-14] MEDS: DEXAMETHASONE SOD PHOSPHATE 4 MG/1 ML VIAL IVPUSH SCH (11:41)
[2020-03-14] MEDS: ENOXAPARIN NA (PORCINE) 40 MG/0.4 ML DISP.SYRIN SQ SCH ×2 (11:41→11:43)
[2020-03-14] MEDS: CHOLECALCIFEROL (VIT D3) 5000 UNITS (125 MCG) CAP PO SCH (11:42)
[2020-03-14] MEDS: FAMOTIDINE 10 MG TABLET PO SCH (11:42)
[2020-03-14] MEDS: ASCORBIC ACID 500 MG TABLET (FP) PO SCH ×2 (11:42→21:32)
[2020-03-14] MEDS: amLODIPine BESYLATE 5 MG TABLET (FP) PO SCH (11:42)
[2020-03-14] MEDS: metoPROLOL SUCCINATE 25 MG TAB.SR.24H (FP) PO SCH (11:42)
[2020-03-14] MEDS: SODIUM ZIRCONIUM CYCLOSILICATE (LOKELMA) 5 GM PACKET PO SCH (12:03)
[2020-03-14] MEDS: guaiFENesin/D-METHORPHAN HB 10 ML UNIT-DOSE CUPS PO PRN ×2 (12:03→21:32)
[2020-03-14] MEDS: REMDESIVIR 100 MG in SODIUM CHLORIDE 230 ML IVPB SCH (21:32)
[2020-03-14] MEDS: LATANOPROST 0.005% OPHTH SOLN 2.5ML BOTTLE OU SCH (21:32)
[2020-03-15] MEDS: INSULIN SLIDING SCALE (NOVOLOG) 1 VIAL SQ SCH (06:06)
[2020-03-15] MEDS: ENOXAPARIN NA (PORCINE) 40 MG/0.4 ML DISP.SYRIN SQ SCH (09:53)
[2020-03-15] MEDS: metoPROLOL SUCCINATE 25 MG TAB.SR.24H (FP) PO SCH (09:54)
[2020-03-15] MEDS: amLODIPine BESYLATE 5 MG TABLET (FP) PO SCH (09:54)
[2020-03-15] MEDS: DEXAMETHASONE SOD PHOSPHATE 4 MG/1 ML VIAL IVPUSH SCH (09:54)
[2020-03-15] MEDS: FAMOTIDINE 10 MG TABLET PO SCH (09:54)
[2020-03-15] MEDS: ASCORBIC ACID 500 MG TABLET (FP) PO SCH (09:54)
[2020-03-15] MEDS: SODIUM ZIRCONIUM CYCLOSILICATE (LOKELMA) 5 GM PACKET PO SCH (09:55)
[2020-03-15] MEDS: CHOLECALCIFEROL (VIT D3) 5000 UNITS (125 MCG) CAP PO SCH (09:55)
[2020-03-15 10:00] VITALS: BP 132/69; PULSE 66; TEMP 98.7
== END 2020-03-15 11:10 | disposition home or self-care (01) | DRG 177 ==
LOC: JER 10:29 → JERBED 11:19 → J6S 21:20
PROVIDERS: ADMIT Internal Medicine; ATTEND Internal Medicine
PROC: XW033E5 Introduction of Remdesivir Anti-infective into Peripheral Vein, Percutaneous Approach, New Technology Group 5 (ICD-10-PCS; principal; 2020-03-10)
PROC: XW13325 Transfusion of Convalescent Plasma (Nonautologous) into Peripheral Vein, Percutaneous Approach, New Technology Group 5 (ICD-10-PCS; 2020-03-11)
DX: U07.1 COVID-19 (principal); J12.82 Pneumonia due to coronavirus disease 2019; J96.01 Acute respiratory failure with hypoxia; E87.2 Acidosis; N17.9 Acute kidney failure, unspecified; I25.10 Atherosclerotic heart disease of native coronary artery without angina pectoris; I10 Essential (primary) hypertension; J40 Bronchitis, not specified as acute or chronic; K21.9 Gastro-esophageal reflux disease without esophagitis; E11.65 Type 2 diabetes mellitus with hyperglycemia; R50.9 Fever, unspecified; D72.829 Elevated white blood cell count, unspecified; R11.2 Nausea with vomiting, unspecified; E87.5 Hyperkalemia; M06.9 Rheumatoid arthritis, unspecified; Z95.1 Presence of aortocoronary bypass graft; Z88.0 Allergy status to penicillin
CPT/HCPCS: 36415; 36430; 71045-TC-FY; 80053; 81003; 82728; 82962; 83605; 83615; 83690; 83735; 83880; 84484; 85025; 85027; 85379; 85610; 85730; 86140; 86850; 86900; 86901; 87040; 87086; 87899; 93005; 93010; 94010; 99285-25; C9399; C9803; J0131; P9017; U0003